=== PATIENT | female | born 1980 | race Two or more races ===

== ENCOUNTER → 2017-10-24 | Emergency (ER) | payer OTHER ==
[~2017-10-24] VITALS: Ht 167.6 cm; Wt 81.6 kg
[~2017-10-24] MED LIST: CLONAZEPAM1 MG; HYZAAR 100-251 EACH; OMEPRAZOLE20 M1
== END | disposition home or self-care (01) ==
LOC: ER 14:37
DX: M54.16 Radiculopathy, lumbar region (principal); M54.5 Low back pain